=== PATIENT | male | born 1955 | race Caucasian/White ===

== ENCOUNTER 2017-07-06 06:01 | Observation (INO) | payer OTHER ==
[~2017-07-06] VITALS: Ht 170.2 cm; Wt 95.4 kg
[~2017-07-06 06:01] MED LIST: BUPROPION100 MG PO; CENTRUM SILVER PO; CLOPIDOGREL75 MG PO; GLIPIZIDE5 MG PO; LISINOPRIL10 MG PO; LORATADINE10 M1 PO; LORTAB5 PO; METFORMIN500 MG PO; METHOCARBAMOL750 MG PO; METOPROL TAR25 MG PO; METOPROLOL25 MG PO; NOVOLOG100 IU/1 M SC; OMEPRAZOLE10 MG PO; OXYBUTYNIN5 M1 PO; PX ASPIRIN81 M1 PO; SALSALATE750 MG PO; SIMVASTATIN10 MG PO; TERAZOSIN1 MG PO; TRAMADOL HCL50 MG PO; [UNRECOGNIZED DRUG - REMARK]
[2017-07-06 06:32] LABS: HEMATOCRIT 41.3 % (39.0-50.0); HEMOGLOBIN 14.2 g/dl (14.0-18.0); IMMATURE GRANULOCYTES 0.7 % (0.0-1.0); MEAN CELL VOLUME 92.8 fL CALC (80.0-100.0); MEAN CORPUSCULAR HGB 31.9 pG CALC (26.0-32.0); MEAN CORPUSCULAR HGB CONC 34.4 g/L CALC (32.0-36.0); NEUT# 3.78 thou/uL (1.82-7.42); RED BLOOD COUNT 4.45 mill/uL (4.70-6.10); RED CELL DISTRI WIDTH 13.1 % (11.5-15.5)
[2017-07-06] MEDS ORDERED: MULTI COMPLETE PO (06:35)
[2017-07-06] MEDS ORDERED: HYTRIN10 MG PO (06:36)
[2017-07-06] MEDS ORDERED: JARDIANCE10 MG (06:37)
[2017-07-06 06:53] LABS: ALBUMIN 4.2 g/dL (3.2-5.0); ALKALINE PHOSPHATASE 79 u/l (38-126); AMYLASE 40 u/l (30-110); ANION GAP 17 (6-22 (CALC)); BILIRUBIN, TOTAL 0.3 mg/dL (0.0-1.4); BUN 14 mg/dL (8-23); BUN/CREATININE RATIO 15 (12-20 (CALC)); CALCIUM 9.8 mg/dL (8.4-10.2); CARBON DIOXIDE 22 mmol/l (22-30); CHLORIDE 107 mmol/l (95-108); CREATININE 0.9 mg/dL (0.7-1.3); GFR > 60 ML/MIN (>=60 (CALC)); GFR FOR AFR.AMER. > 60 ML/MIN (>=60 (CALC)); GLUCOSE 174 mg/dL (82-115); LIPASE 69 u/l (23-300); POTASSIUM 4.2 mmol/l (3.5-5.1); SGOT/AST 22 u/l (19-48); SGPT/ALT 37 u/l (11-66); SODIUM 142 mmol/l (137-146); TOTAL PROTEIN 6.8 g/dL (6.3-8.2)
[2017-07-06 07:05] LABS: MYOGLOBIN 30 ng/mL (0 - 121)
[2017-07-06 08:38] VITALS: BP 118/75
[2017-07-06 10:40] LABS: CHOLESTEROL HDL RATIO 3.3 (<4.4 (CALC)); MAGNESIUM 1.7 mg/dL (1.6-2.3)
[2017-07-06] MEDS ORDERED: NOVOLIN 70/30 SC ×2 (11:16→11:17)
[2017-07-06 15:30] VITALS: BP 112/72
[2017-07-06 19:00] VITALS: BP 134/85
[2017-07-07 00:20] VITALS: BP 130/67
[2017-07-07 04:52] VITALS: BP 104/64
[2017-07-07 05:27] LABS: HEMATOCRIT 43.1 % (39.0-50.0); IMMATURE GRANULOCYTES 0.5 % (0.0-1.0); MEAN CELL VOLUME 92.1 fL CALC (80.0-100.0); MEAN CORPUSCULAR HGB 32.1 pG CALC (26.0-32.0); MEAN CORPUSCULAR HGB CONC 34.8 g/L CALC (32.0-36.0); NEUT# 5.16 thou/uL (1.82-7.42); RED BLOOD COUNT 4.68 mill/uL (4.70-6.10); RED CELL DISTRI WIDTH 12.8 % (11.5-15.5)
[2017-07-07 05:59] LABS: ANION GAP 16 (6-22 (CALC)); BUN 15 mg/dL (8-23); BUN/CREATININE RATIO 18 (12-20 (CALC)); CALCIUM 10.2 mg/dL (8.4-10.2); CARBON DIOXIDE 25 mmol/l (22-30); CHLORIDE 106 mmol/l (95-108); CREATININE 0.9 mg/dL (0.7-1.3); GFR > 60 ML/MIN (>=60 (CALC)); GFR FOR AFR.AMER. > 60 ML/MIN (>=60 (CALC)); GLUCOSE 66 mg/dL (82-115); MAGNESIUM 1.9 mg/dL (1.6-2.3); SODIUM 143 mmol/l (137-146)
[2017-07-07 07:45] VITALS: BP 93/62
[2017-07-07 11:14] VITALS: BP 100/67
[2017-07-07] MEDS ORDERED: BRILINTA90 MG PO (12:59)
== END 2017-07-07 14:02 | disposition home or self-care (01) | DRG 313 ==
LOC: ED 06:01 → ED-I 07:03 → ED 07:25 → MS2 07:26
PROVIDERS: Emergency Medicine; Nurse Practitioner Family; ADMIT Internal Medicine; ATTEND Internal Medicine
DX: R07.9 Chest pain, unspecified (principal); I25.10 Atherosclerotic heart disease of native coronary artery without angina pectoris; E11.9 Type 2 diabetes mellitus without complications; M19.90 Unspecified osteoarthritis, unspecified site; I10 Essential (primary) hypertension; E78.5 Hyperlipidemia, unspecified; I25.2 Old myocardial infarction; N40.0 Benign prostatic hyperplasia without lower urinary tract symptoms; Z87.891 Personal history of nicotine dependence; Z79.4 Long term (current) use of insulin; Z95.5 Presence of coronary angioplasty implant and graft

== ENCOUNTER 2019-11-14 07:21 | Observation (INO) | payer OTHER ==
[~2019-11-14] VITALS: Ht 170.2 cm; Wt 94.5 kg
[~2019-11-14 07:21] MED LIST changes: +BRILINTA90 MG PO; +HYTRIN10 MG PO; +JARDIANCE10 MG; +MULTI COMPLETE PO; +NOVOLIN 70/30 SC
--- NOTE | 2019-11-14 07:25 | NUR ---
PATIENT TO ROOM VIA WHEELCHAIR AND PHYSICIAN AT BEDSIDE FOR EVAL
--- NOTE | 2019-11-14 07:35 | NUR ---
PT ASSESSED. MONITORS APPLIED MD AT BEDSIDE. PT AO X 3. SKIN PINK WARM AND DRY. PT REPORTS FELLING FAINT THIS MORNING. PT TOOK INSULIN THIS MORNING PRIOR TO CHECKING BLOOD GLUCOSE AND FELT DIZZY BEFORE EATING. AT BEDSIDE
[2019-11-14 07:58] LABS: HEMATOCRIT 46.6 % (39.0-50.0); HEMOGLOBIN 15.6 g/dl (14.0-18.0); IMMATURE GRANULOCYTES 1.2 % (0.0-5.0); MEAN CORPUSCULAR HGB 30.1 pG CALC (26.0-32.0); MEAN CORPUSCULAR HGB CONC 33.5 g/dL CAL (32.0-36.0); NEUT# 6.93 thou/uL (1.82-7.42); RED BLOOD COUNT 5.18 mill/uL (4.70-6.10); RED CELL DISTRI WIDTH 13.6 % (11.5-15.5)
[2019-11-14 08:23] LABS: INTERNATIONAL NORMALIZED RATIO 1.1 RATIO (0.7-1.3); PROTHROMBIN TIME 11.1 SECONDS (9.0-12.5)
[2019-11-14 08:29] LABS: ALBUMIN 4.2 g/dL (3.2-5.0); ALKALINE PHOSPHATASE 75 u/l (38-126); ANION GAP 12 (6-22 (CALC)); BILIRUBIN, TOTAL 0.3 mg/dL (0.0-1.4); BUN 23 mg/dL (8-23); BUN/CREATININE RATIO 25 (12-20 (CALC)); CARBON DIOXIDE 25 mmol/l (22-30); CHLORIDE 108 mmol/l (95-108); CREATININE 0.9 mg/dL (0.7-1.3); GFR > 60 ML/MIN (>=60 (CALC)); GFR FOR AFR.AMER. > 60 ML/MIN (>=60 (CALC)); POTASSIUM 3.9 mmol/l (3.5-5.1); SGOT/AST 21 u/l (19-48); SODIUM 142 mmol/l (137-146)
--- NOTE | 2019-11-14 08:35 | NUR ---
PT RESTING ON STRETCHER AWAITING RESULTS
[2019-11-14] MEDS ORDERED: NOVOLIN 70/30 SC (08:43)
[2019-11-14 09:21] LABS: URINE BILIRUBIN - DIPSTICK NEGATIVE (NEGATIVE); URINE BLOOD DIPSTICK NEGATIVE (NEGATIVE); URINE COLOR YELLOW; URINE GLUCOSE - DIPSTICK >=1000 mg/dL (NEGATIVE); URINE KETONE TRACE mg/dL (NEGATIVE); URINE LEUK ESTERASE NEGATIVE (NEGATIVE); URINE NITRITE - DIPSTICK NEGATIVE (Negative); URINE PROTEIN - DIPSTICK NEGATIVE (NEG-TRACE); URINE SPECIFIC GRAVITY 1.025; URINE UROBILINOGEN - DIPSTICK 0.2 E.U./dL (0.2)
--- NOTE | 2019-11-14 09:22 | NUR ---
PT RESTING ON STRETCHER AWAITING ADMISSION
--- NOTE | 2019-11-14 10:07 | NUR ---
BREAKFAST5 TRAY GIVEN
--- NOTE | 2019-11-14 10:28 | NUR ---
REPORT CALLED TO [facility]
--- NOTE | 2019-11-14 10:36 | NUR ---
PT TAKEN VIA WHEELCHAIR TO BATHROOM
--- NOTE | 2019-11-14 10:45 | NUR ---
PT TAKEN VIA WHEELCHAIR TELEMETRY IN PLACE TO MED SURG
[2019-11-14 11:12] VITALS: BP 130/76
--- NOTE | 2019-11-14 11:30 | NUR ---
PT ARRIVES TO ROOM 260 FROM ER, ALERT AND ORIENTED X 3, ACCOMPANIED BY ANASTASIA DOW. PT AMBULATORY IN ROOM. NO EVIDENCE OF HYPOGLYCEMIA AT THIS TIME.
--- NOTE | 2019-11-14 13:55 | NUR ---
PT ATE WELL FOR LUNCH, CONTINUES BEFORE WITHOUT EVIDENCE OF HYPOGLYCEMIA.
[2019-11-14 15:03] VITALS: BP 139/78
--- NOTE | 2019-11-14 18:46 | NUR ---
PT REMAINS LUCID, NO EVIDENCE OF LOW BLOOD SUGAR.
[2019-11-14 18:50] VITALS: BP 147/89
--- NOTE | 2019-11-14 19:15 | NUR ---
ASSESSMENT COMPLETED. NO DISTRESS NOTED; DENIES NEEDS/PAIN. UPDATED ON POC AND VERBALIZES UNDERSTANDINGING. REPORTS BM EARLIER TODAY AND DENIES DIARRHEA. ENCOURAGED TO CALL FOR ANY NEEDS. CALL LIGHT IS IN REACH.
--- NOTE | 2019-11-14 21:40 | NUR ---
PT. C/O GENERALIZED PAIN AND SLEEPLESSNESS, MEDICATED WITH ORDERED PRN SONATA AND TYLENOL, WILL REASSESS. DENIES WANTING NOVOLOG FOR BS 164.ENCOURAGED TO CALL FOR ANY NEEDS. CALL LIGHT IS IN REACH. WILL CONTINUE TO MONITOR.
[2019-11-14 23:49] VITALS: BP 127/76
--- NOTE | 2019-11-15 | NUR ---
RESTING IN BED WITH NO DISTRESS NOTED. DENIES NEEDS. ENCOURAGED TO CALL FOR ANY NEEDS. CALL LIGHT IS IN REACH. WILL CONTINUE TO MONITOR.
[2019-11-15 04:00] VITALS: BP 142/89
[2019-11-15 08:00] VITALS: BP 133/87
--- NOTE | 2019-11-15 09:00 | NUR ---
PT SEEN ALERT AND ORIENTED X 3. LUNGS CLEAR, RA. PT AMBULATORY IN ROOM WITH STEADY GAIT. NO EVIDENCE OF HYPOGLYCEMIA, NO COMPLAINTS. ANTICIPATE DISCHARGE TODAY.
[2019-11-15 11:10] VITALS: BP 124/76
[2019-11-15 11:52] VITALS: BP 135/86
--- NOTE | 2019-11-15 12:08 | NUR ---
PT SEEN BY DR DIETRICH THIS MORNING, HAS BEEN DISCHARGED TO HOME. PT VERBALIZES UNDERSTANDING OF DC INSTRUCTIONS, TAKEN BY WHEELCHAIR TO VEHICLE. PT LEAVES [facility] IN STABLE CONDITION, HAS EATEN LUNCH PRIOR TO DISCHARGE.
== END 2019-11-15 12:06 | disposition home or self-care (01) | DRG 639 ==
LOC: ED 07:21 → ED-I 08:01 → ED 09:14 → MS2 09:15 → ED-I 09:15 → MS2 10:08
PROVIDERS: Student in an Organized Health Care Education/Training Program; ADMIT Internal Medicine; ATTEND Internal Medicine
DX: E11.649 Type 2 diabetes mellitus with hypoglycemia without coma (principal); T38.3X5A Adverse effect of insulin and oral hypoglycemic [antidiabetic] drugs, initial encounter; I10 Essential (primary) hypertension; I25.10 Atherosclerotic heart disease of native coronary artery without angina pectoris; E78.5 Hyperlipidemia, unspecified; I25.2 Old myocardial infarction; Z95.5 Presence of coronary angioplasty implant and graft; Z79.4 Long term (current) use of insulin; Z11.59 Encounter for screening for other viral diseases
CPT/HCPCS: G0378

== ENCOUNTER 2020-06-20 20:03 | Observation (INO) | payer OTHER ==
[~2020-06-20] VITALS: Ht 170.2 cm; Wt 89.8 kg
[~2020-06-20 20:03] MED LIST changes: +DITROPAN5 MG/TA1 PO; -OXYBUTYNIN5 M1 PO
--- NOTE | 2020-06-20 20:05 | NUR ---
BY WC TO ROOM 12
--- NOTE | 2020-06-20 20:15 | NUR ---
RECEIVED FOR CARE,PLAN OF CARE DISCUSSED. AT BEDSIDE
[2020-06-20 20:40] LABS: HEMATOCRIT 47.7 % (39.0-50.0); HEMOGLOBIN 16.2 g/dl (14.0-18.0); IMMATURE GRANULOCYTES 0.6 % (0.0-5.0); MEAN CELL VOLUME 92.4 fL CALC (80.0-100.0); MEAN CORPUSCULAR HGB 31.4 pG CALC (26.0-32.0); NEUT# 11.29 thou/uL (1.82-7.42); RED BLOOD COUNT 5.16 mill/uL (4.70-6.10); RED CELL DISTRI WIDTH 12.9 % (11.5-15.5)
[2020-06-20 20:49] LABS: ALBUMIN 4.4 g/dL (3.2-5.0); ALKALINE PHOSPHATASE 72 u/l (38-126); AMYLASE 54 u/l (30-110); ANION GAP 14 (6-22 (CALC)); BILIRUBIN, TOTAL 0.7 mg/dL (0.0-1.4); BUN 20 mg/dL (8-23); BUN/CREATININE RATIO 25 (12-20 (CALC)); CARBON DIOXIDE 23 mmol/l (22-30); CHLORIDE 103 mmol/l (95-108); CREATININE 0.8 mg/dL (0.7-1.3); GFR > 60 ML/MIN (>=60 (CALC)); GFR FOR AFR.AMER. > 60 ML/MIN (>=60 (CALC)); LIPASE 29 u/l (23-300); POTASSIUM 4.3 mmol/l (3.5-5.1); SGOT/AST 26 u/l (19-48); SODIUM 137 mmol/l (137-146); TOTAL PROTEIN 7.3 g/dL (6.3-8.2)
[2020-06-20] MEDS ORDERED: GLIPIZIDE10 M2 PO (20:59)
[2020-06-20 21:00] LABS: MYOGLOBIN 38 ng/mL (0 - 121)
[2020-06-20] MEDS ORDERED: NOVOLOG FL100 UNIT/M (21:00)
[2020-06-20 21:05] LABS: D-DIMER 0.21 mg/L (0.19-0.60)
[2020-06-20 21:10] LABS: INTERNATIONAL NORMALIZED RATIO 1.2 RATIO (0.7-1.3); PROTHROMBIN TIME 11.9 SECONDS (9.0-12.5)
--- NOTE | 2020-06-20 21:25 | NUR ---
Patient resting, denies chest pain.Call huang inreach,bed in low position
--- NOTE | 2020-06-20 22:37 | NUR ---
Admission Note Report Given to: PALOMA CRAFT Transported by: X Wheelchair Stretcher Transported with: X Nurse Transporter X Patent IV O2 X Social Organization Professor Location: ICU X [facility]
[2020-06-20 22:48] VITALS: BP 164/85
--- NOTE | 2020-06-20 23:30 | NUR ---
PATIENT ADMITTED FROM ER VIA WHEELCHAIR WITH ER STAFF IN ATTENDANCE. PATIENT ADMITTED TO ROOM 290 AND PLACED ON ISOLATION IN NEG PRESSURE ROOM FOR POSITIVE COVID TESTING. PATIENT IS ABLE TO WALK TO THE BED. PATIENT IS AWAKE ALERT AND ORIENTEDX3. PATIENT DENIES ANY COVID SX-NO SOB, COUGH, FEVER, NO LOSS OF TASTE OR SMELL, NO FATIGUE. CAME TO THE ER TONIGHT FOR EPIGASTRIC/CHEST PAIN. STATES THAT HE IS STILL HAVING SOME EPIGASTRIC BURNING. PATIENT WITH TELE MONITOR IN PLACE. IV SITE TO LEFT AC AT THIS TIME. IVF NS HUNG AND INFUSING AT 50CC/HR. SITE IS HEALTHY WITH GOOD BLOOD RETURN. PATIENT OFFER DINNER MEAL BUT DECLINES AT THIS TIME. [id number] LEVEMIR ORDERED FOR TONIGHT. STATES THATHE HASN'T EATEN MUCH TODAY AND DOESN'T WASNT ANYTHING RIGHT NOW. LAST BM WAS TODAY. PATIENT DOES WEAR A BREIF FOR PROTECTION HE DOES HAVE SOME URINARY INCONT ISSUES. LUNGS ARE CLEAR. ABD DISTENDED WITH BS+. NO PERIPHERAL EDEMA NOTED. PATIENT ORIENTED TO ROOM AND SURROUNDINGS. INSTRUCTED ON USE OF NURSE CALL LIGHT, TV REMOTE AND PHONE. SAFETY PRECAUTIONS REVIEWED WITH PATIENT. PATIENT ADVISED THAT WE WILL BE DOING Q6H TROPS TONIGHT AND THE NEXT ONE WILL BE AROUND 0000. CALL LIGHT IN REACH. SAFETY PRECAUTIONS REINFORCED. WILL CONT TO MONITOR.
[2020-06-21] VITALS: BP 141/82
--- NOTE | 2020-06-21 01:00 | NUR ---
PATIENT RESTING IN BED AT THIS TIME-HOB ELEVATED AND EYES CLOSED. RESPS ARE EVEN AND UNLABORED. OOOO TROP-NEG. IVF PATENT AND INFUSING VIA LEFT AC AT 50CC/HR. TELE MONITOR IN PLACE. CALL LIGHT IN REACH. WILL CONT TO MONITOR.
[2020-06-21 04:00] VITALS: BP 144/79
--- NOTE | 2020-06-21 05:30 | NUR ---
PATIENT UP IN ROOM-STATES THAT HE WAS IN THE BR TO VOID WITHOUT ANY DIFFICULTY. STATES THAT THE EPIGASTRIC BURNING FROM LAST NIGHT IS BETTER- DENIES ANY PAIN AT THIS ITME. IVF PATENT AND INFUSING VIA LAC SITE AT 50CCHR. TELE MONITOR IN PLACE. CALL LIGHT IN REACH. WILL CONT TO MONITOR.
[2020-06-21 07:40] VITALS: BP 150/85
--- NOTE | 2020-06-21 07:40 | NUR ---
RECIEVED REPORT FROM PALOMA CRAFT. PT RESTING IN SEMI FOWLERS POSITION UPON ENTERING ROOM. INTRODUCED ELF TO PT AND DISCUSSED POC. PT IS A/O X3. ASSESSMENT AND VITALS COMPLETED. RESPIRATIONS ARE EVEN AND UNLABORED ON ROOM AIR. HEART RHYTHM NORMAL WITH TELE IN PLACE. BOWEL SOUNDS ARE ACTIVE IN ALL QUADRANTS. RADIAL AND PEDAL PULSES ARE STRONG. #20G LFA INFUSING WITH IVF PER ORDER, SITE APPEARS HEALTHY AND PATENT. SKIN IS COOL AND INTACT. PT DENIES OF ANY PAINS AT THIS TIME. ALL SAFETY AND ISOLATION PRECAUTIONS ARE IN PLACE. WILL CONTINUE TO MONITOR.
--- NOTE | 2020-06-21 08:52 | NUR ---
DR SORIA AT BEDSIDE
--- NOTE | 2020-06-21 09:00 | NUR ---
ACCUCHECK RESULTING IN 246. ORDERED LEVEMIR ADMINISTERED. PT TOELRATED WELL.
[2020-06-21 09:11] VITALS: BP 150/85
--- NOTE | 2020-06-21 12:09 | NUR ---
PT EDUCATED ON DISCHARGE INSTRUCTIONS. PT VERALIZED UNDERSTANDING. IV REMOVED WITH CATHATER STILL INTACT. PT TOLERATED WELL. TELE MONITORING REMOVED. ER NOTIFIED. WAITING FOR TRANSPORTATION.WILL CONTINUE TO MONITOR
--- NOTE | 2020-06-21 12:20 | NUR ---
PT WAS TO BE DISCHARGED WITH PROTONIX. DUE TO PT ALREADY TAKE OMEPROZALE AT HOME, PT IS TO CONTINUE TAKING OMEPROZALE DAILY. PT VERBALIZED UNDERSTANDING.
--- NOTE | 2020-06-21 12:43 | NUR ---
Discharge instructions given. Patient verbalizes understanding of same. Discharged in stable condition via Wheelchair to Home with staff. All belongings sent with pt. PT DISCHARGED HOME IN STABLE CONDITION VIA WHEELCHAIR ACCOMPAINED BY JOSE ADAMS. PT LEFT WITH ALL BELONGINGS AND PAPERWORK.
== END 2020-06-21 12:43 | disposition home or self-care (01) | DRG 302 ==
LOC: ED 20:03 → ED-I 21:34 → ED 21:40 → MS2 21:41
PROVIDERS: Family Medicine; ADMIT Internal Medicine; ATTEND Internal Medicine
DX: I25.10 Atherosclerotic heart disease of native coronary artery without angina pectoris (principal); U07.1 COVID-19; K21.9 Gastro-esophageal reflux disease without esophagitis; E11.9 Type 2 diabetes mellitus without complications; I10 Essential (primary) hypertension; E78.5 Hyperlipidemia, unspecified; N40.0 Benign prostatic hyperplasia without lower urinary tract symptoms; Z95.5 Presence of coronary angioplasty implant and graft; Z79.4 Long term (current) use of insulin; Z87.891 Personal history of nicotine dependence

== ENCOUNTER 2020-12-27 18:25 | Emergency (ER) | payer OTHER, MEDICARE ==
[~2020-12-27] VITALS: Ht 170.2 cm; Wt 95.0 kg
[~2020-12-27 18:25] MED LIST changes: +GLIPIZIDE10 M2 PO; +NOVOLOG FL100 UNIT/M
[2020-12-27 19:07] LABS: GFR > 60 ML/MIN (>=60 (CALC)); GFR FOR AFR.AMER. > 60 ML/MIN (>=60 (CALC))
[2020-12-27 19:10] LABS: HEMATOCRIT 44.8 % (39.0-50.0); HEMOGLOBIN 15.5 g/dl (14.0-18.0); IMMATURE GRANULOCYTES 0.6 % (0.0-5.0); MEAN CELL VOLUME 92.4 fL CALC (80.0-100.0); MEAN CORPUSCULAR HGB CONC 34.6 g/dL CAL (32.0-36.0); NEUT# 5.19 thou/uL (1.82-7.42); RED BLOOD COUNT 4.85 mill/uL (4.70-6.10); RED CELL DISTRI WIDTH 11.9 % (11.5-15.5)
[2020-12-27 19:22] LABS: ALBUMIN 4.2 g/dL (3.2-5.0); ALKALINE PHOSPHATASE 54 u/l (38-126); ANION GAP 15 (6-22 (CALC)); BUN 11 mg/dL (8-23); BUN/CREATININE RATIO 15 (12-20 (CALC)); CARBON DIOXIDE 24 mmol/l (22-30); CHLORIDE 101 mmol/l (95-108); CREATININE 0.8 mg/dL (0.7-1.3); GFR > 60 ML/MIN (>=60 (CALC)); GFR FOR AFR.AMER. > 60 ML/MIN (>=60 (CALC)); POTASSIUM 4.2 mmol/l (3.5-5.1); SGOT/AST 31 u/l (19-48); SODIUM 136 mmol/l (137-146)
[2020-12-27 19:24] LABS: BILIRUBIN, TOTAL 0.3 mg/dL (0.0-1.4)
[2020-12-27 19:26] LABS: PROTHROMBIN TIME 10.7 SECONDS (9.0-12.5)
[2020-12-27 19:33] LABS: MYOGLOBIN 25 ng/mL (0 - 121)
[2020-12-27 21:21] VITALS: BP 136/77
== END 2020-12-27 21:15 | disposition short-term general hospital (02) | DRG 66 ==
LOC: ED 18:25
PROVIDERS: Family Medicine
DX: I63.9 Cerebral infarction, unspecified (principal); R29.810 Facial weakness; R47.81 Slurred speech; R29.703 NIHSS score 3; E11.9 Type 2 diabetes mellitus without complications; I10 Essential (primary) hypertension; I25.10 Atherosclerotic heart disease of native coronary artery without angina pectoris; I25.2 Old myocardial infarction; E78.5 Hyperlipidemia, unspecified; G58.9 Mononeuropathy, unspecified; M54.32 Sciatica, left side; N40.0 Benign prostatic hyperplasia without lower urinary tract symptoms; Z79.4 Long term (current) use of insulin; Z95.5 Presence of coronary angioplasty implant and graft
CPT/HCPCS: Q9967

== ENCOUNTER 2021-11-26 11:18 | Emergency (ER) | payer OTHER, MEDICARE ==
[~2021-11-26] VITALS: Ht 170.2 cm; Wt 100.0 kg
[2021-11-26] VITALS (7 sets, daily range): BP systolic 107–139; BP diastolic 66–71
[2021-11-26] MEDS ORDERED: LORTAB 5/3255 MG PO (13:50)
== END 2021-11-26 14:27 | disposition home or self-care (01) | DRG 563 ==
LOC: ED 11:18
DX: S46.911A Strain of unspecified muscle, fascia and tendon at shoulder and upper arm level, right arm, initial encounter (principal); S16.1XXA Strain of muscle, fascia and tendon at neck level, initial encounter; S20.212A Contusion of left front wall of thorax, initial encounter; I10 Essential (primary) hypertension; E11.9 Type 2 diabetes mellitus without complications; I25.10 Atherosclerotic heart disease of native coronary artery without angina pectoris; E78.5 Hyperlipidemia, unspecified; I25.2 Old myocardial infarction; V00.811A Fall from moving wheelchair (powered), initial encounter; Z95.5 Presence of coronary angioplasty implant and graft; Z79.4 Long term (current) use of insulin; Z79.84 Long term (current) use of oral hypoglycemic drugs

== ENCOUNTER 2023-02-07 20:24 | Emergency (ER) | payer OTHER, MEDICARE ==
[~2023-02-07] VITALS: Ht 170.2 cm; Wt 88.0 kg
[2023-02-07] VITALS (7 sets, daily range): BP systolic 133–144; BP diastolic 76–81
[~2023-02-07 20:24] MED LIST changes: +DITROPAN XL5 MG PO; -DITROPAN5 MG/TA1 PO; +LORTAB 5/3255 MG PO
[2023-02-07] MEDS ORDERED: ELIQUIS2.5 MG (22:15)
[2023-02-07] MEDS ORDERED: TYLENOL500 MG PO (22:16)
[2023-02-07] MEDS ORDERED: CLOTRIMAZOLE13 EX (22:18)
[2023-02-07] MEDS ORDERED: B-121000 MC6 PO (22:19)
[2023-02-07] MEDS ORDERED: CLARITIN10 M1 PO (22:21)
[2023-02-07] MEDS ORDERED: ARTHRITIS PAIN RE1 % TOP (22:21)
[2023-02-07] MEDS ORDERED: METHOCARBAMOL500 MG PO (22:22)
[2023-02-07] MEDS ORDERED: CRESTOR40 MG PO (22:23)
[2023-02-07] MEDS ORDERED: OZEMPIC 8 MG/3M1 INJ SC (22:25)
[2023-02-07] MEDS ORDERED: ULTRAM50 MG PO (22:26)
[2023-02-07] MEDS ORDERED: SILDENAFIL100 MG PO (22:26)
== END 2023-02-07 22:44 | disposition home or self-care (01) | DRG 563 ==
LOC: ED 20:24
DX: S63.502A Unspecified sprain of left wrist, initial encounter (principal); I10 Essential (primary) hypertension; E11.9 Type 2 diabetes mellitus without complications; I25.10 Atherosclerotic heart disease of native coronary artery without angina pectoris; E78.5 Hyperlipidemia, unspecified; I25.2 Old myocardial infarction; W01.0XXA Fall on same level from slipping, tripping and stumbling without subsequent striking against object, initial encounter; Y92.008 Other place in unspecified non-institutional (private) residence as the place of occurrence of the external cause; Z79.84 Long term (current) use of oral hypoglycemic drugs; Z95.5 Presence of coronary angioplasty implant and graft

== ENCOUNTER 2023-06-01 17:52 | Observation (INO) | payer OTHER ==
[~2023-06-01] VITALS: Ht 170.2 cm; Wt 90.1 kg
[2023-06-01] VITALS (16 sets, daily range): BP systolic 124–157; BP diastolic 76–91
[~2023-06-01 17:52] MED LIST changes: +ARTHRITIS PAIN RE1 % TOP; +B-121000 MC6 PO; +CLARITIN10 M1 PO; +CLOTRIMAZOLE13 EX; +CRESTOR40 MG PO; +ELIQUIS2.5 MG; +METHOCARBAMOL500 MG PO; +OZEMPIC 8 MG/3M1 INJ SC; +SILDENAFIL100 MG PO; +TYLENOL500 MG PO; +ULTRAM50 MG PO
--- NOTE | 2023-06-01 17:59 | NUR ---
PT AMBULATED TO ROOM 12 WITH USE OF A CANE AND STEADY GAIT, NAD NOTED, CHANGED TO GOWN, EKG DONE, PROVIDER NOTIFIED, AND AT BEDSIDE.
--- NOTE | 2023-06-01 18:20 | NUR ---
Reassessment of patient completed. No distress noted. VSS, CALL LIGHT IN REACH, X-RAY HERE TO OBTAIN PROTABLE CXR.
[2023-06-01 18:26] LABS: BASO% 0.4 % (0-3); EOS% 2.3 % (0-8); HEMATOCRIT 44.3 % (39.0-50.0); IMMATURE GRANULOCYTES 1.5 % (0.0-5.0); LYMPH% 22.2 % (15-41); MEAN CELL VOLUME 92.9 fL CALC (80.0-100.0); MEAN CORPUSCULAR HGB 31.4 pG CALC (26.0-32.0); MEAN CORPUSCULAR HGB CONC 33.9 g/dL CAL (32.0-36.0); MONO% 7.1 % (2-13); NEUT# 7.45 thou/uL (1.82-7.42); NEUT% 66.5 % (42-76); RED BLOOD COUNT 4.77 mill/uL (4.70-6.10); RED CELL DISTRI WIDTH 13.1 % (11.5-15.5)
[2023-06-01 18:50] LABS: ALBUMIN 4.3 g/dL (3.2-5.0); ALKALINE PHOSPHATASE 78 u/l (38-126); ANION GAP 12 (6-22 (CALC)); BILIRUBIN, TOTAL 0.4 mg/dL (0.2-1.3); BUN 11 mg/dL (8-23); BUN/CREATININE RATIO 14 (12-20 (CALC)); CARBON DIOXIDE 27 mmol/l (22-30); CHLORIDE 103 mmol/l (95-108); CREATININE 0.8 mg/dL (0.7-1.3); GFR FOR AFR.AMER. > 60 ML/MIN (>=60 (CALC)); GFR OTHER RACES > 60 ML/MIN (>=60 (CALC)); POTASSIUM 4.1 mmol/l (3.5-5.1); SGOT/AST 29 u/l (19-48); SODIUM 138 mmol/l (137-146); TOTAL PROTEIN 7.1 g/dL (6.3-8.2)
--- NOTE | 2023-06-01 19:10 | NUR ---
RECIEVED REPORT FROM JOYCE RN AT THIS TIME, PATIENT UPDATED N CONTINUOUS PLAN OF CARE WITH NO FURTHER QUESTIONS OR CONCERNS AT THIS TIME, PATIENT VOICES APPRECIATION OF CARE, URINAL PROVIDED AT THIS TIME PER PATIENT REQUEST, AWAITING ROOM UPSTAIRS AT THIS TIME.
--- NOTE | 2023-06-01 19:16 | NUR ---
REPORT GIVEN TO BOX OFFICE MANAGER, PT VSS, NAD NOTED, CALL LIGHT IN REACH, AT BEDSIDE.
[2023-06-01] MEDS ORDERED: NOVOLOG MIX SC (19:57)
[2023-06-01] MEDS ORDERED: WEGOVY1 MG (20:00)
[2023-06-01] MEDS ORDERED: TAMSULOSIN0.4 MG PO (20:01)
--- NOTE | 2023-06-01 20:17 | NUR ---
PATIENT UPDATED ON CONTINUOUS PLAN OF CARE WITH NO FURTHER QUESTIONS OR CONCERNS AT THIS TIME, AWAITING ROOM UPSTAIRS, PATIENT VOICES UNDERSTANDING WITH NO FURTHER QUESTIONS OR CONCERNS AT THIS TIME.
[2023-06-01] MEDS ORDERED: BAYER ASPIRIN E81 MG PO (20:30)
--- NOTE | 2023-06-01 20:30 | NUR ---
REPORT CALLED TO BRITTNY AT THIS TIME, PATIENT UPDATED ON CONTINUOUS PLAN OF CARE WITH NO FURTHER QUESTIONS OR CONCERNS AT THIS TIME, AWAITING ADMISSION ORDERS AND TRANSPORT TO [facility].
--- NOTE | 2023-06-01 21:52 | NUR ---
ADMITTING ORDERS PLACED, PATIENT TRANSPORTED TO [facility] AT THIS TIME, PATIENT VOICES APPRECIATION OF CARE AT THIS TIME, AMB TO W/C AND TO [facility]. NURSE/ SHIFT COMMANDER AT BEDSIDE.
--- NOTE | 2023-06-02 00:05 | NUR ---
PT IS RELAXING IN BED WITH NO DISTRESS NOTED.
[2023-06-02 00:10] VITALS: BP 136/79
--- NOTE | 2023-06-02 00:17 | NUR ---
PT ARRIVED FROM ER VIA WC WITH FAMILY AND STAFF. IV SITE IS FREE FROM REDNESS OR EDEMA. HR IS REG,PULSES ARE STRONG X4,ABD IS SOFT WITH ACTIVE BS. TELE MONITOR IN PLACE.
--- NOTE | 2023-06-02 04:10 | NUR ---
PT IS RELAXING IN BED WITH NO DISTRESS NOTED. IV AND TELE IN PLACE
[2023-06-02 04:31] VITALS: BP 124/80
[2023-06-02 05:23] LABS: HEMATOCRIT 43.5 % (39.0-50.0); HEMOGLOBIN 14.9 g/dl (14.0-18.0); MEAN CELL VOLUME 92.9 fL CALC (80.0-100.0); MEAN CORPUSCULAR HGB 31.8 pG CALC (26.0-32.0); MEAN CORPUSCULAR HGB CONC 34.3 g/dL CAL (32.0-36.0); RED BLOOD COUNT 4.68 mill/uL (4.70-6.10)
[2023-06-02 05:46] LABS: ALBUMIN 3.9 g/dL (3.2-5.0); ALKALINE PHOSPHATASE 68 u/l (38-126); ANION GAP 14 (6-22 (CALC)); BUN 9 mg/dL (8-23); BUN/CREATININE RATIO 13 (12-20 (CALC)); CARBON DIOXIDE 24 mmol/l (22-30); CHLORIDE 105 mmol/l (95-108); CREATININE 0.7 mg/dL (0.7-1.3); GFR FOR AFR.AMER. > 60 ML/MIN (>=60 (CALC)); GFR OTHER RACES > 60 ML/MIN (>=60 (CALC)); MAGNESIUM 1.8 mg/dL (1.6-2.3); POTASSIUM 3.9 mmol/l (3.5-5.1); SGOT/AST 21 u/l (19-48); SODIUM 138 mmol/l (137-146); TOTAL PROTEIN 6.3 g/dL (6.3-8.2)
[2023-06-02 06:00] LABS: BILIRUBIN, TOTAL 0.6 mg/dL (0.2-1.3)
[2023-06-02 06:30] VITALS: BP 123/63
--- NOTE | 2023-06-02 06:30 | NUR ---
patient glucose level is 150, nurse aware.
--- NOTE | 2023-06-02 07:00 | NUR ---
REPORT RECIEVED FROM SPECTROGRAPHIC ANALYST CAR BODY MECHANIC
--- NOTE | 2023-06-02 08:00 | NUR ---
PT RESTING IN BED UPON EENTERING ROOM. PT A&OX3. PT STATES NO FEELING OF CHEST PAIN. ASSESSMENT COMPLETED. TELE MONITOR IN PLACE, CONTINOUS MONITORING PER ED. UPDATED PT IN CURRENT PLAN OF CARE. PT INDICATED UNDERSTANDING. GLUCOSE CHECK: 150. IV PATENT/FLUSHED/ HEALTHY. ENCOURGED USE OF CALL LIGHT. FALL/SAFTEY PRECAUTION IN PLACE. CALL LIGHT WITHIN REACH
[2023-06-02 11:00] VITALS: BP 145/85
--- NOTE | 2023-06-02 11:00 | NUR ---
patient glucose level is 227.
--- NOTE | 2023-06-02 12:00 | NUR ---
PT EATING LUNCH. NO DISTRESS NOTED. STATES NO EEDS AT THIS TIME. FALL/SAFTEY PRECAUTION IN PLACE. CALL LIGHT WITHIN REACH.
[2023-06-02 13:56] VITALS: BP 145/85
--- NOTE | 2023-06-02 14:47 | NUR ---
REMOVED TELE PLACED IN NURSES STATION
--- NOTE | 2023-06-02 14:47 | NUR ---
Discharge instructions given. Patient verbalizes understanding of same. Discharged in STABLE condition via Wheelchair to Home with staff. All belongings sent with pt.
== END 2023-06-02 14:47 | disposition home or self-care (01) | DRG 313 ==
LOC: ED 17:52 → ED-I 18:50 → ED 19:06 → MS2 19:07
PROVIDERS: Family Medicine; ADMIT Student in an Organized Health Care Education/Training Program; ATTEND Student in an Organized Health Care Education/Training Program
DX: R07.9 Chest pain, unspecified (principal); K21.9 Gastro-esophageal reflux disease without esophagitis; I10 Essential (primary) hypertension; E11.9 Type 2 diabetes mellitus without complications; I25.10 Atherosclerotic heart disease of native coronary artery without angina pectoris; E78.5 Hyperlipidemia, unspecified; I25.2 Old myocardial infarction; I48.91 Unspecified atrial fibrillation; Z86.73 Personal history of transient ischemic attack (TIA), and cerebral infarction without residual deficits; Z79.01 Long term (current) use of anticoagulants; Z95.5 Presence of coronary angioplasty implant and graft; Z79.84 Long term (current) use of oral hypoglycemic drugs
CPT/HCPCS: J3475